=== PATIENT | male | born 1970 | race Caucasian/White ===

== ENCOUNTER → 2018-04-27 | Outpatient (CLI) | payer OTHER | END | disposition home or self-care (01) | LOC: CDC 15:10 | DX: R94.31 Abnormal electrocardiogram [ECG] [EKG] (principal) | CPT/HCPCS: 93000 ==

== ENCOUNTER 2018-05-29 17:29 | Emergency (ER) | payer OTHER ==
[~2018-05-29] VITALS: Ht 177.8 cm; Wt 135.7 kg
[2018-05-29 17:58] LABS: HEMATOCRIT 40.7 % (38.0-50.0); HEMOGLOBIN 14.2 G/DL (12.5-16.6); MCH 32.3 PG (29.0-34.0); MCHC 34.9 G/DL (30.0-36.0); MCV 92.7 FL (86-99); PLATELET COUNT 227 K/uL (156-360); RBC DIS.WIDTH-CV 13.6 % (11.8-14.6); RED BLOOD COUNT 4.39 M/uL (4.00-5.50); WHITE BLOOD COUNT 11.2 K/uL (4.1-10.2)
[2018-05-29 18:06] LABS: CHLORIDE 108 mEq/L (99-109); SODIUM 143 mEq/L (136-147)
[2018-05-29 18:07] LABS: GLUCOSE 150 mg/dL (70-99)
[2018-05-29 18:11] LABS: CREATININE 1.2 mg/dL (0.6-1.3); GFR ESTIMATE (CALCULATED) > 59 mL/min/ (58.99-99999)
[2018-05-29 18:12] LABS: UREA NITROGEN (BUN) 18 mg/dL (9-23)
[2018-05-29 18:18] LABS: TROP-I INTERPRETATION NEGATIVE; TROPONIN-I < 0.01 ng/mL (0.0-0.30)
[2018-05-29 20:24] LABS: ALBUMIN 3.9 g/dL (3.2-4.8)
[2018-05-29 20:27] LABS: TOTAL PROTEIN 7.3 g/dL (6.4-8.3)
[2018-05-29 20:29] LABS: TOTAL BILIRUBIN 0.3 mg/dL (0.0-1.0)
[2018-05-29 20:30] LABS: ALKALINE PHOSPHATASE 95 IU/L (3-129)
[2018-05-29 20:32] LABS: AST (GOT) 19 IU/L (2-34); DIRECT BILIRUBIN 0.1 mg/dL (0.0-0.3)
[2018-05-29 20:33] LABS: ALT (GPT) 36 IU/L (3-49); LIPASE 24 U/L (1.0-51.0)
[2018-05-29 23:26] LABS: APPEARANCE CLEAR ((CLEAR)); BILIRUBIN NEGATIVE; BLOOD MODERATE; COLOR YELLOW ((YELLOW)); GLUCOSE (STRIP) NEGATIVE; KETONES NEGATIVE; LEUKOCYTES NEGATIVE; NITRITE NEGATIVE; PROTEIN (STRIP) 100; SPECIFIC GRAVITY 1.057 (1.000-1.030); UROBILINOGEN 0.2 MG/DL (0.2-1.0)
[2018-05-29 23:28] LABS: BACTERIA NONE SEEN /HPF; EPITHELIAL CELLS NONE SEEN /HPF; MUCUS NONE SEEN /LPF; RED BLOOD CELLS 0-5 /HPF (0-5); UCUL ADDED? NO; WHITE BLOOD CELLS 0-5 /HPF (0-5)
[2018-05-30] MEDS ORDERED: MOTRIN800 MG PO (00:10)
[2018-05-30] MEDS ORDERED: ZOFRAN ODT4 MG PO (00:10)
[2018-05-30 00:48] VITALS: BP 132/82
== END 2018-05-30 00:49 | disposition home or self-care (01) ==
LOC: EME 17:29
PROVIDERS: Emergency Medicine
DX: K76.0 Fatty (change of) liver, not elsewhere classified (principal); R10.9 Unspecified abdominal pain; R10.816 Epigastric abdominal tenderness; R10.811 Right upper quadrant abdominal tenderness; R07.9 Chest pain, unspecified; R11.0 Nausea; R94.31 Abnormal electrocardiogram [ECG] [EKG]
CPT/HCPCS: 71046; 74177; 80048; 80076; 81003; 83690; 83735; 84484; 85027; 93005; 99281; 99285; J7040; S0028